=== PATIENT | female | born 1995 | race Caucasian/White ===

== ENCOUNTER 2017-09-10 13:08 | Emergency (ER) | payer MEDICAID | END 2017-09-10 13:45 | disposition home or self-care (01) | LOC: D.ER 13:08 | DX: S01.541A Puncture wound with foreign body of lip, initial encounter (principal); X58.XXXA Exposure to other specified factors, initial encounter; Y93.89 Activity, other specified; Y92.029 Unspecified place in mobile home as the place of occurrence of the external cause ==